=== PATIENT | female | born 1995 | race Caucasian/White ===

== ENCOUNTER 2017-07-08 14:47 | Day surgery (SDC) | payer BC, OTHER ==
[~2017-07-08] VITALS: Ht 162.6 cm; Wt 75.9 kg
[~2017-07-08 14:47] MED LIST: ACETAMINOPHEN 500 MG TAB (TYLENOL) PO PRN; ALPRAZolam 0.25 MG (XANAX) TAB PO PRN; IBUPROFEN TABLET 200 MG TAB PO PRN; NS IV 1000 ML 1,000 ML IV SCH
[2017-07-08 14:55] VITALS: BP 120/79
[2017-07-08] MEDS ORDERED: CETI10TA20 PO (15:20)
[2017-07-08] MEDS ORDERED: NORE1TAB95 PO (15:20)
[2017-07-08] MEDS ORDERED: NS IV 1000 ML 1,000 ML ONE (15:41)
[2017-07-08] MEDS ORDERED: CATHETER FLUSH 10 ML SYR IV PRN (15:45)
[2017-07-08 17:09] LABS: BASOPHILS % (AUTO) 0 % (0-10); EOSINOPHILS % (AUTO) 0 % (0-10); LYMPHOCYTES # (AUTO) 0.5 X 10^3 (1.0-4.0); LYMPHOCYTES % (AUTO) 10 % (12-44); MEAN CORPUSCULAR HEMOGLOBIN 29 PG (25-34); MEAN CORPUSCULAR HGB CONC 35 G/DL (32-36); MEAN CORPUSCULAR VOLUME 85 FL (80-99); MEAN PLATELET VOLUME 10.5 FL (7.4-10.4); MONOCYTES # (AUTO) 0.2 X 10^3 (0.0-1.0); MONOCYTES % (AUTO) 5 % (0-12); NEUTROPHILS # (AUTO) 3.8 X 10^3 (1.8-7.8); NEUTROPHILS % (AUTO) 85 % (42-75); PLATELET COUNT 168 10^3/uL (130-400); RED CELL DISTRIBUTION WIDTH 12.6 % (10.0-14.5); WHITE BLOOD COUNT 4.5 10^3/uL (4.3-11.0)
[2017-07-08] MEDS ORDERED: PANTOPRAZOLE 40 MG/10 ML (PROTONIX) VIAL IV NR (17:15)
[2017-07-08] MEDS: ONDANSETRON 4 MG/2 ML (SDV) Z0FRAN IVP PRN ×2 (17:38→21:39)
[2017-07-08 17:39] LABS: ALANINE AMINOTRANSFERASE 15 U/L (0-55); ALBUMIN 3.5 GM/DL (3.2-4.5); ANION GAP 8 MMOL/L (5-14); ASPARTATE AMINO TRANSFERASE 16 U/L (5-34); BILIRUBIN,TOTAL 0.5 MG/DL (0.1-1.0); BLOOD UREA NITROGEN 9 MG/DL (7-18); BUN/CREATININE RATIO 13; CALCIUM 7.7 MG/DL (8.5-10.1); CARBON DIOXIDE 22 MMOL/L (21-32); CHLORIDE 108 MMOL/L (98-107); GFR ESTIMATED > 60; GLUCOSE 89 MG/DL (70-105); POTASSIUM 3.1 MMOL/L (3.6-5.0); SODIUM 138 MMOL/L (135-145); TOTAL PROTEIN 5.6 GM/DL (6.4-8.2)
[2017-07-08] MEDS ORDERED: POTASSIUM CHLORIDE INJ 20 MEQ in NS IV 1000 ML 1,000 ML IV SCH (17:43)
--- NOTE | 2017-07-08 17:52 | History & Physical-Hospitalist ---
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 She had taken some TUMS periodically for the past 1 month after self-dx GERD but denies any pain like this before. I have consulted Dr Lua and he has seen the patient and we conferred about his plan for repeat USG and EGD tomorrow and placed her on PPI in meantime. I have also consulted Dr Regalado for severe tachycardia of 160's in ER and given 2 liters of fluid bolus and then 200cc/he and still remained tachycardic at 120's. ECHO was completed and that was nl. Currently patient still feels bloated but her pain is better. I have met her family and explained the plans. 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[place]) Alcohol Use: Occasionally Uses Number of Drinks Today: 0 Recreational Drug Use: No Smoking Status: Never a Smoker Physical Abuse Screen: No Sexual Abuse: No Recent Foreign Travel: No Contact w/other who traveled: No Recent Hopitalizations: No Recent Infectious Disease Expo: No Immunizations Up To Date Date of Influenza Vaccine: May 04, 2017 Seasonal Allergies Seasonal Allergies: Yes Surgeries Yes (tooth extraction) Respiratory No Cardiovascular No Neurological No Genitourinary Yes Kidney Stones Gastrointestinal No Musculoskeletal No Endocrine History of Endocrine Disorders: No HEENT History of HEENT Disorders: No Cancer No Psychosocial History of Psychiatric Problem: No Integumentary History of Skin or Integumenta: No Blood Transfusions History of Blood Disorders: No Family Medical History Family Hx: FH: breast cancer 19 MOTHER FH: mastectomy 19 MOTHER (with lymph node removal) Review of Systems Constitutional: see HPI, malaise, weakness EENTM: no symptoms reported Respiratory: no symptoms reported Cardiovascular: palpitations Gastrointestinal: abdominal pain (RUQ), dysphagia, heartburn, loss of appetite , nausea, vomiting Genitourinary: no symptoms reported Musculoskeletal: no symptoms reported Skin: no symptoms reported Psychiatric/Neurological: No Symptoms Reported All Other Systems Reviewed Negative Unless Noted: Yes Physical Exam Physical Exam Vital Signs Vital Sign - Last 12Hours 07/08/17 14:55 Temp 99.2 Pulse 124 Resp 16 B/P (MAP) 120/79 (93) Pulse Ox 99 O2 Delivery Room Air Capillary Refill : General Appearance: WD/WN, Mild Distress (due to fright of ICU) Eyes: Bilateral Eye Normal Inspection, Bilateral Eye PERRL HEENT: PERRL/EOMI, Normal ENT Inspection, Pharynx Normal Neck: Full Range of Motion, Normal Inspection, Non Tender, Supple, Carotid Bruit Respiratory: Chest Non Tender, Lungs Clear, Normal Breath Sounds, No Accessory Muscle Use, No Respiratory Distress Cardiovascular: No Edema, No Gallop, No JVD, No Murmur, Normal Peripheral Pulses, Tachycardia Gastrointestinal: Normal Bowel Sounds, No Organomegaly, No Pulsatile Mass, Guarding, Tenderness Back: Normal Inspection, No CVA Tenderness, No Vertebral Tenderness Extremity: Normal Capillary Refill, Normal Inspection, Normal Range of Motion, Non Tender, No Calf Tenderness, No Pedal Edema Neurologic/Psychiatric: Alert, Oriented x3, No Motor/Sensory Deficits, Normal Mood/Affect Skin: Normal Color, Warm/Dry Lymphatic: No Adenopathy Results Results/Procedures Lab Laboratory Tests 07/08/17 16:55 Assessment/Plan Admission Diagnosis Assessment: Severe epigastric abdominal pain with negative CT scan and GB USG but severely tachycardic and bandemia of 30% in outlying ER Recent GERD Assessment and Plan Plan: IVF Potassium replacement Pain meds PPI EGD GB USG Amylase, lipas Clinical Quality Measures DVT/VTE Risk/Contraindication: Risk Factor Score Per Nursin RFS Level Per Nursing on Admit: 1=Low/No VTE PPX SHANEKA HAINES DO Jul 08, 2017 17:52
[2017-07-08 18:20] LABS: AMYLASE 47 U/L (25-125); LIPASE 15 U/L (8-78)
[2017-07-08] MEDS: NS W/KCL 20 MEQ/L 1,000 ML IV SCH (18:28)
--- NOTE | 2017-07-08 18:42 | Diagnostic Imaging Report ---
PROCEDURE: US Gallbladder. TECHNIQUE: Multiple real-time grayscale images were obtained over the right upper quadrant in various projections. INDICATION: Right upper quadrant pain with vomiting. EXAMINATION: Ultrasound gallbladder dated 07/08/2017. FINDINGS: The visualized aspects of the liver appear unremarkable. No masses or lesions appreciated. There is no intrahepatic biliary dilatation. The common bile duct is not well seen, perhaps obscured by overlying bowel gas. Gallbladder wall is normal. No stones seen in the gallbladder. No sludge appreciated. Pancreas is also not well visualized. Right kidney is 11.1 cm in greatest dimension. It is unremarkable. There is no ascites. IMPRESSION: 1. Visualized structures demonstrate no acute abnormality. However, some areas are not well seen as noted above. Dictated by: Dictated on workstation # [id number]
[2017-07-08 20:00] VITALS: BP 116/71
[2017-07-08] MEDS: fentaNYL INJECTION 100 MCG/2 ML AMP IVP PRN (21:39)
--- NOTE | 2017-07-08 21:57 | Consultation ---
History of Present Illness History of Present Illness Patient Consulted On(kwadwo/time) 07/08/17 16:58 Date Seen by Provider: Jul 08, 2017 Time Seen by Provider: 16:58 History of Present Illness Consult requested by Dr. Haines for epigastric abdominal pain. patient is a 22 year old female that was transferred from [facility]. Patient began having pain in the epigastric region yesterday and pain has continued through today. Patient has been having nausea and emesis. Pain she states at worse was 8/10 currently a 3/10. Pain moves slightly towards the right side under her ribs and also has some associated back pain. Patient states that she has having some gerd symptoms for about the last month, taking TUMS but never has experienced pain like this before. She has been tachycardic. She had a GB u/s which was normal at outlying facility and a ct scan that demonstrated slight gastric thickening possible underdistended stomach no other significant findings. Patient reports slight fever up to 101. She denies sweats chills shortness of breath or chest pain. Allergies and Home Medications Allergies Coded Allergies: No Allergy Information Available (Unverified , 07/08/17) Home Medications Cetirizine HCl 10 Mg Tablet, 10 MG PO DAILY, (Reported) Norethindrone-E.estradiol-Iron 1 Each Tablet, 1 TAB PO DAILY, (Reported) Past Xtwqoad-Srvokq-Ktxuuh Hx Patient Social History Alcohol Use: Occasionally Uses Number of Drinks Today: 0 Recreational Drug Use: No Smoking Status: Never a Smoker Recent Foreign Travel: No Contact w/Someone Who Travel: No Recent Infectious Disease Expo: No Recent Hopitalizations: No Physical Abuse Screen: No Sexual Abuse: No Immunizations Up To Date Date of Influenza Vaccine: May 04, 2017 Seasonal Allergies Seasonal Allergies: Yes Surgeries History of Surgeries: Yes (tooth extraction) Respiratory History of Respiratory Disorde: No Cardiovascular History of Cardiac Disorders: No Neurological History of Neurological Disord: No Genitourinary History of Genitourinary Disor: Yes Genitourinary Disorders: Kidney Stones Gastrointestinal History of Gastrointestinal Di: No Musculoskeletal History of Musculoskeletal Dis: No Endocrine History of Endocrine Disorders: No HEENT History of HEENT Disorders: No Cancer History of Cancer: No Psychosocial History of Psychiatric Problem: No Integumentary History of Skin or Integumenta: No Blood Transfusions History of Blood Disorders: No Family Medical History Significant Family History: No Pertinent Family Hx Family Medial History: FH: breast cancer 19 MOTHER FH: mastectomy 19 MOTHER (with lymph node removal) Review of Systems-General Constitutional: see HPI, fever EENTM: no symptoms reported Respiratory: no symptoms reported Cardiovascular: see HPI Gastrointestinal: RUQ Genitourinary: no symptoms reported Musculoskeletal: back pain Skin: no symptoms reported Psychiatric/Neurological: No Symptoms Reported Physical Exam-General Problems Physical Exam Vital Signs Vital Sign - Last 12Hours 07/08/17 14:55 Temp 99.2 Pulse 124 Resp 16 B/P (MAP) 120/79 (93) Pulse Ox 99 O2 Delivery Room Air Capillary Refill : General Appearance: no apparent distress HEENT: normal ENT inspection Neck: supple Respiratory: no respiratory distress, no accessory muscle use Cardiovascular: tachycardia Gastrointestinal: soft, tenderness (slight in epigastric rightu upper quadrant) Back: normal inspection, no CVA tenderness, no vertebral tenderness Extremities: non-tender, normal inspection Neurologic/Psychiatric: no motor/sensory deficits, alert, normal mood/affect, oriented x 3 Skin: normal color, warm/dry Lymphatic: no adenopathy Data Review Labs Laboratory Tests 07/08/17 16:55: White Blood Count 4.5, Red Blood Count 4.70, Hemoglobin 13.8, Hematocrit 40, Mean Corpuscular Volume 85, Mean Corpuscular Hemoglobin 29, Mean Corpuscular Hemoglobin Concent 35, Red Cell Distribution Width 12.6, Platelet Count 168, Mean Platelet Volume 10.5H, Neutrophils (%) (Auto) 85H, Lymphocytes (%) (Auto) 10L, Monocytes (%) (Auto) 5, Eosinophils (%) (Auto) 0, Basophils (%) (Auto) 0, Neutrophils # (Auto) 3.8, Lymphocytes # (Auto) 0.5L, Monocytes # (Auto) 0.2, Eosinophils # (Auto) 0.0, Basophils # (Auto) 0.0, Sodium Level 138, Potassium Level 3.1L, Chloride Level 108H, Carbon Dioxide Level 22, Anion Gap 8, Blood Urea Nitrogen 9, Creatinine 0.70, Estimat Glomerular Filtration Rate > 60, BUN/ Creatinine Ratio 13, Glucose Level 89, Calcium Level 7.7L, Total Bilirubin 0.5, Aspartate Amino Transf (AST/SGOT) 16, Alanine Aminotransferase (ALT/SGPT) 15, Alkaline Phosphatase 47, Total Protein 5.6L, Albumin 3.5, Amylase Level 47, Lipase 15 Assessment/Plan Assessment/Plan Assessment/Plan epigastric/right upper quadrant abdominal pain. nausea and vomiting GERD will repeat u/s of gallbladder tonight to evaluate. her liver enzymes were not elevated, labs being repeated here if gb u/s normal will plan on EGD tomorrow, NPO after midnight. Patient does have symptoms of reflux which could be attributing to current symptoms, started on Protonix All of patient and family questions answered Clinical Quality Measures DVT/VTE Risk/Contraindication: Risk Factor Score Per Nursin RFS Level Per Nursing on Admit: 1=Low/No VTE PPX JONY SAAVEDRA DO Jul 08, 2017 21:57
[2017-07-09] VITALS: BP 112/58
[2017-07-09] MEDS: NS W/KCL 20 MEQ/L 1,000 ML IV SCH ×5 (00:25→20:56)
[2017-07-09 04:00] VITALS: BP 108/64
[2017-07-09] MEDS: ONDANSETRON 4 MG/2 ML (SDV) Z0FRAN IVP PRN ×5 (04:32→23:49)
[2017-07-09] MEDS: fentaNYL INJECTION 100 MCG/2 ML AMP IVP PRN ×4 (04:32→23:52)
[2017-07-09 05:00] LABS: BASOPHILS % (AUTO) 0 % (0-10); EOSINOPHILS % (AUTO) 1 % (0-10); LYMPHOCYTES # (AUTO) 0.8 X 10^3 (1.0-4.0); LYMPHOCYTES % (AUTO) 22 % (12-44); MEAN CORPUSCULAR HEMOGLOBIN 30 PG (25-34); MEAN CORPUSCULAR HGB CONC 35 G/DL (32-36); MEAN CORPUSCULAR VOLUME 85 FL (80-99); MEAN PLATELET VOLUME 10.4 FL (7.4-10.4); MONOCYTES # (AUTO) 0.3 X 10^3 (0.0-1.0); MONOCYTES % (AUTO) 9 % (0-12); NEUTROPHILS # (AUTO) 2.4 X 10^3 (1.8-7.8); NEUTROPHILS % (AUTO) 68 % (42-75); PLATELET COUNT 145 10^3/uL (130-400); RED CELL DISTRIBUTION WIDTH 12.4 % (10.0-14.5); WHITE BLOOD COUNT 3.5 10^3/uL (4.3-11.0)
[2017-07-09 05:40] LABS: ALANINE AMINOTRANSFERASE 18 U/L (0-55); ALBUMIN 3.2 GM/DL (3.2-4.5); ANION GAP 11 MMOL/L (5-14); ASPARTATE AMINO TRANSFERASE 20 U/L (5-34); BILIRUBIN,TOTAL 0.5 MG/DL (0.1-1.0); BLOOD UREA NITROGEN 5 MG/DL (7-18); BUN/CREATININE RATIO 9; CALCIUM 7.3 MG/DL (8.5-10.1); CARBON DIOXIDE 17 MMOL/L (21-32); CHLORIDE 109 MMOL/L (98-107); CREATININE SERUM 0.57 MG/DL (0.60-1.30); GFR ESTIMATED > 60; GLUCOSE 80 MG/DL (70-105); POTASSIUM 3.8 MMOL/L (3.6-5.0); SODIUM 137 MMOL/L (135-145); TOTAL PROTEIN 4.3 GM/DL (6.4-8.2)
[2017-07-09 08:00] VITALS: BP 103/57
[2017-07-09] MEDS: LORATADINE (CLARITIN) 10 MG TAB PO SCH (08:29)
[2017-07-09] MEDS: PANTOPRAZOLE 40 MG/10 ML (PROTONIX) VIAL IV SCH (08:29)
[2017-07-09] MEDS: HYDROcodone/APAP 5 MG/325 MG (LORTAB) TAB PO PRN (08:29)
[2017-07-09] MEDS ORDERED: NORETHINDRONE E ESTRADIOL IRON PO SCH (09:00)
[2017-07-09] MEDS ORDERED: NON-FORMULARY MEDICATION 1 EA EA (Cetirizine HCl (Zyrtec) 10 MG) PO SCH (09:00)
--- NOTE | 2017-07-09 09:16 | Progress Note ---
Subjective Date Seen by Provider: Jul 09, 2017 Time Seen by Provider: 09:12 Subjective/Events-last exam Not having any significant abdominal pain. Still with some nausea. Denies fever sweats chills shortness of breath or chest pain. U/s gb normal Objective Exam Vital Signs Date Time Temp Pulse Resp B/P (MAP) Pulse Ox O2 Delivery O2 Flow Rate FiO2 07/09/17 08:00 96.9 92 12 103/57 (72) 98 Room Air 07/09/17 07:00 78 07/09/17 04:00 98.2 93 16 108/64 (79) 97 Room Air 07/09/17 04:00 97 Room Air 07/09/17 01:00 87 07/09/17 00:00 97 Room Air 07/09/17 00:00 98.6 98 18 112/58 (76) 97 Room Air 07/08/17 21:00 97 Room Air 07/08/17 20:00 98.0 105 16 116/71 (86) 97 Room Air 07/08/17 20:00 97 Room Air 07/08/17 19:00 114 07/08/17 15:00 Room Air 07/08/17 14:55 99.2 124 16 120/79 (93) 99 Room Air I & O 07/09/17 07:00 Intake Total 440 ml Output Total 1100 ml Balance -660 ml Capillary Refill : General Appearance: No Apparent Distress, WD/WN HEENT: PERRL/EOMI, Normal ENT Inspection, Pharynx Normal Neck: Full Range of Motion, Normal Inspection, Non Tender, Supple, Carotid Bruit Respiratory: Chest Non Tender, Lungs Clear, Normal Breath Sounds, No Accessory Muscle Use, No Respiratory Distress Cardiovascular: Regular Rate, Rhythm, Tachycardia Gastrointestinal: non tender (no significant tenderness), soft, tenderness Extremity: Normal Capillary Refill, Normal Inspection, Normal Range of Motion, Non Tender, No Calf Tenderness, No Pedal Edema Neurologic/Psychiatric: Alert, Oriented x3, No Motor/Sensory Deficits, Normal Mood/Affect Skin: Normal Color, Warm/Dry Lymphatic: No Adenopathy Results Lab Laboratory Tests 07/08/17 16:55: White Blood Count 4.5, Red Blood Count 4.70, Hemoglobin 13.8, Hematocrit 40, Mean Corpuscular Volume 85, Mean Corpuscular Hemoglobin 29, Mean Corpuscular Hemoglobin Concent 35, Red Cell Distribution Width 12.6, Platelet Count 168, Mean Platelet Volume 10.5H, Neutrophils (%) (Auto) 85H, Lymphocytes (%) (Auto) 10L, Monocytes (%) (Auto) 5, Eosinophils (%) (Auto) 0, Basophils (%) (Auto) 0, Neutrophils # (Auto) 3.8, Lymphocytes # (Auto) 0.5L, Monocytes # (Auto) 0.2, Eosinophils # (Auto) 0.0, Basophils # (Auto) 0.0, Sodium Level 138, Potassium Level 3.1L, Chloride Level 108H, Carbon Dioxide Level 22, Anion Gap 8, Blood Urea Nitrogen 9, Creatinine 0.70, Estimat Glomerular Filtration Rate > 60, BUN/ Creatinine Ratio 13, Glucose Level 89, Calcium Level 7.7L, Total Bilirubin 0.5, Aspartate Amino Transf (AST/SGOT) 16, Alanine Aminotransferase (ALT/SGPT) 15, Alkaline Phosphatase 47, Total Protein 5.6L, Albumin 3.5, Amylase Level 47, Lipase 15 07/09/17 04:40: White Blood Count 3.5L, Red Blood Count 4.20L, Hemoglobin 12.5, Hematocrit 36, Mean Corpuscular Volume 85, Mean Corpuscular Hemoglobin 30, Mean Corpuscular Hemoglobin Concent 35, Red Cell Distribution Width 12.4, Platelet Count 145, Mean Platelet Volume 10.4, Neutrophils (%) (Auto) 68, Lymphocytes (%) (Auto) 22 , Monocytes (%) (Auto) 9, Eosinophils (%) (Auto) 1, Basophils (%) (Auto) 0, Neutrophils # (Auto) 2.4, Lymphocytes # (Auto) 0.8L, Monocytes # (Auto) 0.3, Eosinophils # (Auto) 0.0, Basophils # (Auto) 0.0, Sodium Level 137, Potassium Level 3.8, Chloride Level 109H, Carbon Dioxide Level 17L, Anion Gap 11, Blood Urea Nitrogen 5L, Creatinine 0.57L, Estimat Glomerular Filtration Rate > 60, BUN /Creatinine Ratio 9, Glucose Level 80, Calcium Level 7.3L, Total Bilirubin 0.5, Aspartate Amino Transf (AST/SGOT) 20, Alanine Aminotransferase (ALT/SGPT) 18, Alkaline Phosphatase 44, Total Protein 4.3L, Albumin 3.2 Assessment/Plan Assessment/Plan Assessment/Plan epigastric/right upper quadrant abdominal pain. nausea and vomiting GERD gb u/s normal will plan EGD today. Clinical Quality Measures DVT/VTE Risk/Contraindication: Risk Factor Score Per Nursin RFS Level Per Nursing on Admit: 1=Low/No VTE PPX JONY SAAVEDRA DO Jul 09, 2017 09:16
--- NOTE | 2017-07-09 09:26 | Consultation-Cardiology ---
HPI-Cardiology Cardiology Consultation: Date of Consultation 07/09/17 Date of Admission Attending Physician Shaneka Haines DO Admitting Physician Zeina,Local Physician Consulting Physician Emmanuel REGALADO MD HPI: Time Seen by Provider: 09:25 Chief Complaint: Tachycardia This is a 22-year-old lady with no significant past medical history. She presents with right abdominal pain for the last 2 days. She is also had associated nausea. She was found to be tachycardic and had leukocytosis. She denies any chest pain or shortness of breath. She denies smoking or alcohol history. She also denies drug abuse. Review of Systems-Cardiology Review of Systems Constitutional: fever Eyes: No As described under HPI, No no symptoms reported, No blindness, No blurred vision, No contact lenses, No drainage, No decreased acuity, No foreign body sensation, No glasses, No inflammation, No pain, No photophobia, No previous injury, No shadows, No tunnel vision, No other, No vision change Ears/Nose/Throat: No As described under HPI, No no symptoms reported, No chronic hearing loss, No epistaxis, No ear discharge, No ear pain, No loose teeth, No mouth pain, No mouth swelling, No nasal drainage, No nose pain, No recent hearing loss, No throat pain, No throat swelling, No ulcerations, No other Respiratory: No no symptoms reported, No As described under HPI, No cough, No orthopnea, No shortness of breath, No SOB with excertion, No SOB at rest, No stridor, No wheezing, No other Cardiovascular: No no symptoms reported, No As described under HPI, No chest pain, No edema, No irregular heart rate, No lightheadedness, No palpitations, No syncope, No other Gastrointestinal: abdominal pain Genitourinary: No no symptoms reported, No As described under HPI, No burning, No dysuria, No discharge, No frequency, No flank pain, No hematuria, No incontinence, No pain, No urgency, No other, No urine frequency changes, No urine coloration changes Musculoskeletal: No no symptoms reported, No As describe under HPI, No back pain, No gout, No joint pain, No joint swelling, No muscle pain, No muscle stiffness, No neck pain, No other Skin: No no symptoms reported, No As described under HPI, No change in color, No change in hair/nails, No dryness, No lesions, No lumps, No rash, No other, No skin related problems, No ulcerations, No rash on exposed areas, No ulcerations on exposed areas Psychiatric/Neurological: No no symptoms reported, No As described under HPI, No anxiety, No depression, No emotional problems, No headache, No numbness, No pre-existing deficit, No seizure, No tingling, No tremors, No weakness, No other , No focal weakness, No syncope Hematologic: No no symptoms reported, No As described under HPI, No anemia, No blood clots, No easy bleeding, No easy bruising, No swollen glands, No other, No bleeding abnormalities All Other Systems Reviewed Negative Unless Noted: Yes NWT-Mffeaf-Lardrg Hx Patient Social History Marrital Status: single Employed/Student: employed ([employer] in [place]) Alcohol Use: Occasionally Uses Recreational Drug Use: No Smoking Status: Never a Smoker Recent Foreign Travel: No Recent Infectious Disease Expo: No Hospitalization with Isolation: Denies Physical Abuse Screen: No Sexual Abuse: No Immunizations Up To Date Date of Influenza Vaccine: May 04, 2017 Past Medical History PMH As described under Assessment. Family Medical History Family History: FH: breast cancer 19 MOTHER FH: mastectomy 19 MOTHER (with lymph node removal) Allergies and Home Medications Allergies Coded Allergies: No Allergy Information Available (Unverified , 07/08/17) Home Medications Cetirizine HCl 10 Mg Tablet, 10 MG PO DAILY, (Reported) Norethindrone-E.estradiol-Iron 1 Each Tablet, 1 TAB PO DAILY, (Reported) Physical Exam-Cardiology Physical Exam Vital Signs/I&O Vital Sign - Last 12Hours 07/10/17 07/10/17 07/10/17 07/10/17 00:00 00:00 01:00 04:00 Pulse 78 73 Resp 19 B/P (MAP) 119/73 (88) Pulse Ox 98 O2 Delivery Room Air Room Air Room Air 07/10/17 07/10/17 07/10/17 07/10/17 04:00 07:00 08:00 08:00 Temp 98.5 Pulse 76 64 78 Resp 20 B/P (MAP) 116/78 (91) 126/81 (96) Pulse Ox 97 O2 Delivery Room Air Room Air 07/10/17 07/10/17 09:00 11:04 O2 Delivery Room Air Room Air Intake and Output 07/09/17 23:59 Intake Total 2550 ml Output Total 2350 ml Balance 200 ml Capillary Refill : Constitutional: No appears stated age, No AAO x 3, No apparent distress, No PERRL, No well-developed, No well-nourished, No other HEENT: No PERRL, No normal ENT inspection, No TMs normal, No pharynx normal, No scleral icterus (R), No scleral icterus (L), No pale conjunctivae (R), No pale conjunctivae (L), No photophobia, No TM abnormal (R), No TM abnormal (L), No pharyngeal erythema, No tonsillar exudate, No other, No discharge, No EOMI, No hearing is well preserved, No hard of hearing, No oral hygience is good, No ulceration, No xanthelasmas are seen Neck: No non-tender, No full range of motion, No supple, No normal inspection, No carotid bruit, No limited range of motion, No lymphadenopathy (R), No lymphadenopathy (L), No tender lateral, No tender midline, No thyromegaly, No other, No carotid pulses are 2 + bilaterally, No with good upstrokes Respiratory: No accessory muscle use, No respiratory distress, No chest tender , No chest expansion is symmetric, No chest is bilaterally symmetric, No lungs clear to percussion, No lungs clear to auscultation, No crackles, No rhonchi, No rales, No stridor, No wheezing, No pleural rub, No other Cardiovascular: regular rate-rhythm, tachycardia, S1 and S2 Gastrointestinal: tenderness Rectal: deferred Extremities: No normal range of motion, No non-tender, No normal inspection, No pedal edema, No calf tenderness, No normal capillary refill, No pelvis stable , No calf tenderness, No inflammation, No pedal edema, No slow capillary refill , No swelling, No other, No abrasion, No clubbing, No cyanosis, No ecchymosis, No laceration, No no lower extremity edema bilateral, No significant edema, No tenderness, No wound Neurologic/Psychiatric: No cost estimating engineer II-XII nml as tested, No no motor/sensory deficits, No alert, No normal mood/affect, No oriented x 3, No abnormal cerebellar tests, No abnormal cost estimating engineer II-XII, No abnormal gait, No aphasia, No EOM palsy, No facial droop, No motor weakness, No sensory deficit, No depressed affect, No disoriented x 3, No other, No grossly intact, No power is 5/5 both on sides Skin: No normal color, No warm/dry, No cyanosis, No cool, No diaphoresis, No damp, No ecchymosis, No jaundice, No mottled, No pallor, No rash, No tattoos/ piercings, No ulcerations, No rash on exposed areas, No ulcerations on exposed areas, No other Lymphatic: no adenopathy Data Review Labs ECG Impression ECG Initial ECG Rhythm: S.Tach A/P-Cardiology Assessment/Admission Diagnosis Tachycardia, abdominal pain, leucocytosis Plan Sinus tachycardia with normal echocardiogram. very likely secondary to systemic illness. Discussed at length with the patient. No stigmata of infective endocarditis. Defer to primary team. Thank you for your consultation. Please call me if you have any questions. Maximus Regalado MD, FACP, FACC, FSCAI, FHRS, CCDS Interventional Cardiology Cardiac Electrophysiology Vascular Medicine and Endovascular Interventions Clinical Quality Measures DVT/VTE Risk/Contraindication: Risk Factor Score Per Nursin RFS Level Per Nursing on Admit: 1=Low/No VTE PPX Emmanuel REGALADO MD Jul 09, 2017 09:26
--- NOTE | 2017-07-09 11:01 | Progress Note-Hospitalist ---
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 She had taken some TUMS periodically for the past 1 month after self-dx GERD but denies any pain like this before. I have consulted Dr Lua and he has seen the patient and we conferred about his plan for repeat USG and EGD tomorrow and placed her on PPI in meantime. I have also consulted Dr Regalado for severe tachycardia of 160's in ER and given 2 liters of fluid bolus and then 200cc/he and still remained tachycardic at 120's. ECHO was completed and that was nl. Currently patient still feels bloated but her pain is better. I have met her family and explained the plans. Progress Notes/Assess & Plan Date Seen 07/09/17 Time Seen by Provider: 11:00 Admission Dx/Process Assessment: Severe epigastric abdominal pain with negative CT scan and GB USG but severely tachycardic and bandemia of 30% in outlying ER Recent GERD Diagonsis/Assessment & Plan Dr. Regalado Review: Pt was in sinus tach and Dr. Regalado believes that her symptoms appear to just be a response to illness Echo was normal Patient Interview: Pt states she is sore and has a headache Pt confirms scope this afternoon and was assured that this is necessary to complete workup and hopefully rule out gastritis. US of gallbladder discussed and looks good Pt states her abdominal pain is fine, but she has been on pain meds Labs were discussed and look good, better than yesterday Physical exam stable. Pt confirms flatus, but denies having BMs. Pt denies eating for at least a day. Stress response was discussed, and it was discussed that sometimes a very healthy individual can mount a very strong immune response, much like the one the pt experienced. AFVSS, pleasant, improved RRR at 72, CTAB soft abdomen No edema Assessment: Severe epigastric abdominal pain with negative CT scan and GB USG but severely tachycardic and bandemia of 30% in outlying ER Recent GERD Plan: IVF Pain meds PPI EGD Scribed by Mimi Swanson under direct supervision of Dr. Shaneka Hansen. SHANEKA HANSEN DO Jul 09, 2017 11:01
[2017-07-09 12:39] VITALS: BP 116/74
[2017-07-09] MEDS ORDERED: proPOfol 200 MG/20 ML (DIPRIVAN) VIAL IV ONE ×2 (14:21→14:47)
[2017-07-09] MEDS ORDERED: MIDAZOLAM 5 MG/5 ML (VERSED) VIAL ONE (14:21)
[2017-07-09] MEDS ORDERED: LACTATED RINGERS 1,000 ML IV ONE (14:31)
[2017-07-09] MEDS ORDERED: LACTATED RINGERS 1,000 ML IV STA (15:01)
[2017-07-09] MEDS ORDERED: HURRICAINE EXT TUBE (BENZOCAINE) XX PRN (15:15)
--- NOTE | 2017-07-09 16:00 | Progress Note-Post Operative ---
Post-Operative Progess Note Surgeon (s)/Timber Robber (s) Surgeon JONY SAAVEDRA DO Timber Robber: na Pre-Operative Diagnosis epigastric abdominal pain , gerd Post-Operative Diagnosis slight gastritis, hiatal hernia Procedure & Operative Findings Date of Procedure 07/09/17 Procedure Performed/Findings egd c biopsy Anesthesia Type per hosiery mender Estimated Blood Loss Estimated blood loss (mL): none Specimens/Packing Specimens Removed antrum JONY SAAVEDRA DO Jul 09, 2017 16:00
[2017-07-09 20:00] VITALS: BP 114/66
--- NOTE | 2017-07-09 22:26 | OPERATIVE REPORT ---
DATE OF SERVICE: 07/09/2017 PREOPERATIVE DIAGNOSES: Epigastric abdominal pain and gastroesophageal reflux disease. POSTOPERATIVE DIAGNOSES: Slight gastritis, hiatal hernia. PROCEDURE PERFORMED: Esophagogastroduodenoscopy with biopsy. SURGEON: Jony Lua DO. ANESTHESIA: Per WATCH INSPECTOR FINAL MOVEMENT. ESTIMATED BLOOD LOSS: None. COMPLICATIONS: None. INDICATIONS: The patient is a 22-year-old female, who has been having epigastric abdominal pain, nausea and vomiting. She has had a normal CT scan except for some questionable thickening of the stomach. She has had normal ultrasound of her gallbladder. She understands risks and benefits of procedure and wished to proceed with procedure. Consent was signed and on the chart. DESCRIPTION OF PROCEDURE: The patient was taken to the endoscopy suite, placed in left lateral recumbent position. Timeout was performed. Scope was inserted in mouth, down into esophagus, stomach and into the duodenum without difficulty. There were no polyps, mass or ulcerations within the duodenum. Scope was slowly retracted back into the stomach, which was further insufflated. Some slight erythematous changes within the antrum. Biopsy of this area was obtained. The scope was retroflexed noting a hiatal hernia. There were no polyps, masses or ulcerations. Scope was returned to its normal position, slowly withdrawn back into the distal esophagus. There were no polyps, masses, ulcerations, or erythematous changes in the distal esophagus. Scope was slowly retracted back until completely removed, noting no other pathology. The patient tolerated procedure well without any complications. She was taken to recovery room in stable condition. RECOMMENDATIONS: We would continue the patient on Protonix. We would recommend doing a HIDA scan for further evaluation. Job ID: [id number] DocumentID: [id number] Dictated Date: 07/09/2017 16:06:25 Tomato Grader Date: 07/09/2017 22:25:51 Dictated By: JONY LUA DO
[2017-07-10] VITALS: BP 119/73
[2017-07-10] MEDS: HYDROcodone/APAP 5 MG/325 MG (LORTAB) TAB PO PRN (00:13)
[2017-07-10] MEDS: NS W/KCL 20 MEQ/L 1,000 ML IV SCH ×2 (03:43→12:30)
[2017-07-10 04:00] VITALS: BP 116/78
[2017-07-10 08:00] VITALS: BP 126/81
[2017-07-10] MEDS: LORATADINE (CLARITIN) 10 MG TAB PO SCH (08:36)
[2017-07-10] MEDS: PANTOPRAZOLE 40 MG/10 ML (PROTONIX) VIAL IV SCH (08:37)
--- NOTE | 2017-07-10 10:07 | Cardiology Progress Note ---
Cardiology SOAP Progress Note Subjective: No cardiac complaints. Objective: I&O/Vital Signs Vital Sign - Last 12Hours 07/10/17 07/10/17 07/10/17 07/10/17 01:00 04:00 04:00 07:00 Temp 98.5 Pulse 73 76 64 Resp 20 B/P (MAP) 116/78 (91) Pulse Ox 97 O2 Delivery Room Air Room Air 07/10/17 07/10/17 07/10/17 07/10/17 08:00 08:00 09:00 11:04 Pulse 78 B/P (MAP) 126/81 (96) O2 Delivery Room Air Room Air Room Air Intake and Output 07/09/17 23:59 Intake Total 2550 ml Output Total 2350 ml Balance 200 ml Weight (Pounds): 167 Weight (Ounces): 7.0 Weight (Calculated Kilograms): 75.154077 Constitutional: No appears stated age, No AAO x 3, No apparent distress, No PERRL, No well-developed, No well-nourished, No other Respiratory: No accessory muscle use, No respiratory distress, No chest tender , No chest expansion is symmetric, No chest is bilaterally symmetric, No lungs clear to percussion, No lungs clear to auscultation, No crackles, No rhonchi, No rales, No stridor, No wheezing, No pleural rub, No other Cardiovascular: No regular rate-rhythm, No irregularly irregular, No extra beats, No parasternal heave is noted, No JVD, No edema, No bradycardia, No tachycardia, No point of maximal impulse, No cardiac thrills are palpable, No S1 and S2, No gallop/S3, No gallop/S4, No diastolic murmur, No systolic murmur, No friction rub, No click, No other Gastrointestional: No tender, No soft, No round, No distended, No pulsatile mass, No organomegaly, No guarding, No rebound, No tenderness, No hernia, No mass, No audible bowel sounds, No abnormal bowel sounds, No abdominal bruits, No spleenomegaly, No other Genital/Rectal: No normal genital exam, No normal rectal exam, No heme negative stool, No normal rectal tone, No normal vaginal exam, No blood at urethral meatus, No decreased rectal tone, No heme positive stool, No tenderness , No other Extremities: No normal range of motion, No non-tender, No normal inspection, No pedal edema, No calf tenderness, No normal capillary refill, No pelvis stable , No calf tenderness, No inflammation, No pedal edema, No slow capillary refill , No swelling, No other, No abrasion, No clubbing, No cyanosis, No ecchymosis, No laceration, No no lower extremity edema bilateral, No significant edema, No tenderness, No wound Neurologic/Psychiatric: No compensation manager II-XII nml as tested, No no motor/sensory deficits, No alert, No normal mood/affect, No oriented x 3, No abnormal cerebellar tests, No abnormal compensation manager II-XII, No abnormal gait, No aphasia, No EOM palsy, No facial droop, No motor weakness, No sensory deficit, No depressed affect, No disoriented x 3, No other, No grossly intact, No power is 5/5 both on sides Skin: No normal color, No warm/dry, No cyanosis, No cool, No diaphoresis, No damp, No ecchymosis, No jaundice, No mottled, No pallor, No rash, No tattoos/ piercings, No ulcerations, No rash on exposed areas, No ulcerations on exposed areas, No other A/P: Assessment/Dx: Tachycardia, abdominal pain, leucocytosis Plan: Tachycardia much better - from sinus tachycardia to sinus rhythm. Improved situation. EGD, Hida scan. per GS and primary team. Thank you for your consultation. Please call me if you have any questions. Maximus Regalado MD, FACP, FACC, FSCAI, FHRS, CCDS Interventional Cardiology Cardiac Electrophysiology Vascular Medicine and Endovascular Interventions Emmanuel REGALADO MD Jul 10, 2017 10:07
--- NOTE | 2017-07-10 11:40 | Discharge Summary-Hospitalist ---
Diagnosis/Chief Complaint Date of Admission Jul 08, 2017 at 14:58 Date of Discharge Admission Diagnosis Assessment: Severe epigastric abdominal pain with negative CT scan and GB USG but severely tachycardic and bandemia of 30% in outlying ER Recent GERD Discharge Diagnosis Assessment: Severe epigastric abdominal pain with negative CT scan and GB USG x 2 with severe tachycardia of 160 on admit and bandemia of 30% in outlying ER but HIDA scan reveals EF of only 4% so biliary dyskinesia is the dx Recent GERD placed on PPI empirically Discharge Summary Discharge Physical Examination Allergies: Coded Allergies: No Allergy Information Available (Unverified , 07/08/17) Vitals & I&Os Vital Signs Date Time Temp Pulse Resp B/P (MAP) Pulse Ox O2 Delivery O2 Flow Rate FiO2 07/10/17 11:04 Room Air 07/10/17 08:00 78 126/81 (96) 07/10/17 04:00 98.5 20 97 Hospital Course Notes from 07/10/17 Dr. uLa Review: HIDA scan will be done this afternoon manuscripts curator: Will talk to Dr. Lua when HIDA comes through Patient Interview: Was going to scan Plan: Copy of all records to pt Scribed by Mimi Swanson under direct supervision of Dr. Shaneka Haines. I updated the patient and family upon arrival back to room from HIDA scan and updated them on the HIDA scan results and Dr Lua will be in to see them and plan accordingly. Discharge Home Medications: Active Scripts Active Protonix (Pantoprazole Sodium) 40 Mg Tablet. 40 Mg PO DAILY Reported Lo Loestrin Fe 1-10 Tablet (Norethindrone-E.estradiol-Iron) 1 Each Tablet 1 Tab PO DAILY Zyrtec (Cetirizine HCl) 10 Mg Tablet 10 Mg PO DAILY Instructions to patient/family Please see electronic discharge instructions given to patient. Clinical Quality Measures DVT/VTE Risk/Contraindication: Risk Factor Score Per Nursin RFS Level Per Nursing on Admit: 1=Low/No VTE PPX SHANEKA HAINES DO Jul 10, 2017 11:39
[2017-07-10 12:00] VITALS: BP 120/74
[2017-07-10] MEDS ORDERED: PANT40TA2 PO (12:14)
[2017-07-10] MEDS: ONDANSETRON 4 MG/2 ML (SDV) Z0FRAN IVP PRN (12:21)
--- NOTE | 2017-07-10 12:53 | Diagnostic Imaging Report ---
EXAMINATION: HIDA with EF measurements Indication: Abdominal pain TECHNIQUE: After the intravenous administration of 4.9 mCi of Tc 99m Choletec, imaging over the abdomen was obtained. This was followed by administration of Ensure orally to stimulate intrinsic CCK secretion, followed by continued imaging with ejection fraction measured. FINDINGS: There is homogeneous uptake in the liver with prompt bile duct and gallbladder filling seen. Bowel activity is seen at 15 minutes. Based on further imaging and gallbladder area of interest activity measurements after the administration of Ensure, the gallbladder ejection fraction is estimated at 4%. IMPRESSION: 1. Normal hepatobiliary uptake and Gallbladder filling. 2. Markedly reduced gallbladder ejection fraction compatible with biliary dyskinesia. Dictated by: Dictated on workstation # [id number]
[2017-07-10] MEDS ORDERED: ONDA4TAB8 PO (13:50)
--- NOTE | 2017-07-10 22:12 | Progress Note ---
Subjective Date Seen by Provider: Jul 10, 2017 Time Seen by Provider: 08:12 Subjective/Events-last exam slight right upper quadrant pain. has some nausea and dry heaves last night. feeling slightly better now. Patient for HIDA scan today. denies fever sweats chills shortness of breath or chest pain. Objective Exam Vital Signs Date Time Temp Pulse Resp B/P (MAP) Pulse Ox O2 Delivery O2 Flow Rate FiO2 07/10/17 13:00 97 07/10/17 12:00 98.0 72 16 120/74 (89) 95 07/10/17 11:04 Room Air 07/10/17 09:00 Room Air 07/10/17 08:00 Room Air 07/10/17 08:00 78 126/81 (96) 07/10/17 07:00 64 07/10/17 04:00 98.5 76 20 116/78 (91) 97 Room Air 07/10/17 04:00 Room Air 07/10/17 01:00 73 07/10/17 00:00 Room Air 07/10/17 00:00 78 19 119/73 (88) 98 Room Air I & O 07/10/17 07:00 Intake Total 3550 ml Output Total 4150 ml Balance -600 ml Capillary Refill : General Appearance: No Apparent Distress, WD/WN HEENT: PERRL/EOMI, Normal ENT Inspection, Pharynx Normal Neck: Full Range of Motion, Normal Inspection, Non Tender Respiratory: Chest Non Tender, Lungs Clear, Normal Breath Sounds, No Accessory Muscle Use, No Respiratory Distress Cardiovascular: Regular Rate, Rhythm Gastrointestinal: soft, tenderness (ruq minimal) Extremity: Normal Capillary Refill, Normal Inspection, Normal Range of Motion, Non Tender, No Calf Tenderness, No Pedal Edema Neurologic/Psychiatric: Alert, Oriented x3, No Motor/Sensory Deficits, Normal Mood/Affect Skin: Normal Color, Warm/Dry Lymphatic: No Adenopathy Assessment/Plan Assessment/Plan Assessment/Plan epigastric/right upper quadrant abdominal pain. nausea and vomiting GERD hiatal hernia Hida scan planned today Patient seen after Hida scan Gallbladder EF 4% consistent with biliary dyskinesia Plan Lap cholecystectomy all other indicated procedures intraoperative cholangiogram tomorrow. Okay to DC home and do as outpatient. discussed risks and benefit with patient and parents who agree. Clinical Quality Measures DVT/VTE Risk/Contraindication: Risk Factor Score Per Nursin RFS Level Per Nursing on Admit: 1=Low/No VTE PPX JONY SAAVEDRA DO Jul 10, 2017 22:12
[2017-07-11] MEDS ORDERED: DOCU-143 PO (11:43)
[2017-07-11] MEDS ORDERED: HYDR-3812 PO (11:43)
[2017-07-11] MEDS ORDERED: HYDROcodone/APAP 5 MG/325 MG (LORTAB) TAB ONE (13:09)
== END 2017-07-10 14:40 | disposition home or self-care (01) ==
LOC: ICU 14:47 → SDC 14:47 → UNDOADMOB 14:47 → ICU 14:47 → UNDOADMOB 14:58 → EDSTATUS 15:34 → UNDODISOB 07-10 14:40 → SDC 07-10 14:40
PROVIDERS: ATTEND Internal Medicine
DX: K29.70 Gastritis, unspecified, without bleeding (principal); K44.9 Diaphragmatic hernia without obstruction or gangrene; R00.0 Tachycardia, unspecified; Z87.442 Personal history of urinary calculi; D72.829 Elevated white blood cell count, unspecified; K82.8 Other specified diseases of gallbladder
CPT/HCPCS: 36415; 76705; 78227; 80053; 82150; 83690; 85025; 88305; 93306; 99211; G0378

== ENCOUNTER 2017-07-11 07:30 | Day surgery (SDC) | payer BC ==
[~2017-07-11] VITALS: Ht 162.6 cm; Wt 75.9 kg
[~2017-07-11 07:30] MED LIST changes: -ACETAMINOPHEN 500 MG TAB (TYLENOL) PO PRN; -ALPRAZolam 0.25 MG (XANAX) TAB PO PRN; +CETI10TA20 PO; -IBUPROFEN TABLET 200 MG TAB PO PRN; +NORE1TAB95 PO; -NS IV 1000 ML 1,000 ML IV SCH; +ONDA4TAB8 PO; +PANT40TA2 PO
[2017-07-11 08:45] VITALS: BP 137/79
[2017-07-11] MEDS ORDERED: ceFAZolin INJECTION 1,000 MG in NS (IVPB) 50 ML IV ONE (08:45)
[2017-07-11] MEDS ORDERED: HYDROmorphone (DILAUDID) 2 MG/ML VIAL ONE (09:28)
[2017-07-11] MEDS ORDERED: morphine INJ 10 MG/ML 1ML (SYR OR VIAL) ONE (09:28)
[2017-07-11] MEDS ORDERED: PROMETHAZINE INJ 25 MG/ML (PHENERGAN) AMP ONE (09:28)
[2017-07-11] MEDS ORDERED: MEPERIDINE (DEMEROL) INJ 50 MG/ML ONE (09:28)
[2017-07-11] MEDS ORDERED: ONDANSETRON 4 MG/2 ML (SDV) Z0FRAN ONE ×3 (09:29→10:50)
[2017-07-11] MEDS ORDERED: LIDOCAINE 1% INJ 20 ML (XYLOCAINE) VIAL ONE (09:58)
[2017-07-11] MEDS ORDERED: BUPIVACAINE 0.5% 30 ML (SENSORCAINE) VIAL ONE (09:58)
--- NOTE | 2017-07-11 10:34 | Progress Note-Pre Operative ---
Pre-Operative Progress Note H&P Reviewed The H&P was reviewed, patient examined and no changes noted. Date Seen by Provider: Jul 11, 2017 Time Seen by Provider: 10:34 Date H&P Reviewed: Jul 11, 2017 Time H&P Reviewed: 10:34 Pre-Operative Diagnosis: biliary dyskinesia JONY SAAVEDRA DO Jul 11, 2017 10:34
[2017-07-11] MEDS: LACTATED RINGERS 1,000 ML IV PRN ×2 (10:40→11:47)
[2017-07-11] MEDS ORDERED: SCOPOLAMINE 1.5 MG (TRANSDERM-SCOP) PATCH ONE (10:45)
[2017-07-11] MEDS ORDERED: fentaNYL INJECTION 100 MCG/2 ML AMP ONE (10:48)
[2017-07-11] MEDS ORDERED: MIDAZOLAM 2 MG/2 ML (VERSED) VIAL ONE (10:48)
[2017-07-11] MEDS ORDERED: SEVOFLURANE (ULTANE) 15 ML INHAL SOLN ONE ×3 (10:48→11:41)
[2017-07-11] MEDS ORDERED: LACTATED RINGERS 1,000 ML IV ONE ×2 (10:48→11:41)
[2017-07-11] MEDS ORDERED: ROCURONIUM 50 MG/5 ML (ZEMURON) VIAL IV ONE (10:48)
[2017-07-11] MEDS ORDERED: proPOfol 200 MG/20 ML (DIPRIVAN) VIAL IV ONE (10:48)
[2017-07-11] MEDS ORDERED: LIDOCAINE PF 2% 5 ML (XYLOCAINE) VIAL ONE (10:48)
[2017-07-11] MEDS ORDERED: DEXAMETHASONE 10 MG/ML (DECADRON) 1 ML VIAL ONE (10:49)
[2017-07-11] MEDS ORDERED: FAMOTIDINE 20MG/2ML IV (PEPCID) ONE (10:49)
--- NOTE | 2017-07-11 11:41 | Progress Note-Post Operative ---
Post-Operative Progess Note Surgeon (s)/Imposer (s) Surgeon JONY SAAVEDRA DO Imposer: Dr. Freeman Pre-Operative Diagnosis biliary dyskinesia Post-Operative Diagnosis same Procedure & Operative Findings Date of Procedure 07/11/17 Procedure Performed/Findings lap taran attempted IOC Anesthesia Type general Estimated Blood Loss Estimated blood loss (mL): minimal Specimens/Packing Specimens Removed gallbladder JONY SAAVEDRA DO Jul 11, 2017 11:41
[2017-07-11] MEDS ORDERED: HYDR-3812 PO (11:43)
[2017-07-11] MEDS ORDERED: DOCU-143 PO (11:43)
[2017-07-11] MEDS ORDERED: HYDROcodone/APAP 5 MG/325 MG (LORTAB) TAB PO PRN (11:45)
--- NOTE | 2017-07-11 11:45 | Discharge Inst-Simple/Standard ---
Discharge Inst-Standard Discharge Medications New, Converted or Re-Newed RX: RX on Chart Patient Instructions/Follow Up Plan of Care/Instructions/FU: 2 weeks Stoney Activity as Tolerated: No Discharge Diet: Regular Diet Other Inst to Patient Follow up Appt: Make appointment for 2 weeks. Instructions: No lifting greater than 10 pounds. No strenuous activity. May shower in 24 hours, no tub bath or soaking. Use incentive spirometer at home as directed. No Smoking Skin/Wound Care: You have special glue over incisions it will fall off on its own. Symptoms to Report: Appetite Changes, Extremity Discoloration, Numbness/Tingling, Swelling Increased , Bleeding Excessive, Eyesight Changes, Pain Increased, Urine Color Change, Constipation(Persistent), Fever over 101 degree F, Pain/Pressure in chest, Urinating Difficulty, Cough Up/Vomit Blood, Heart Beat Irreg/Pounding, Pain/ Pressure in jaw, Vaginal Bleeding Increase, Cramps in feet or legs, Lightheadedness, Pain/Pressure in shoulder, Diarrhea(Persistent), Memory Changes Suddenly, Questions/Concerns, Weight gain consecutive days, Dizziness/ Fainting, Nausea/Vomiting, Shortness of Breath, Weight gain over 2 pounds. If eyes or skin turn yellow notify physician. If questions or concerns contact your physician Or seek help at emergency department. JONY SAAVEDRA DO Jul 11, 2017 11:45
[2017-07-11] MEDS: morphine INJ 10 MG/ML 1ML (SYR OR VIAL) IVP PRN ×2 (12:07→12:15)
[2017-07-11] MEDS: PROMETHAZINE INJ 25 MG/ML (PHENERGAN) AMP IVP PRN ×2 (12:09→12:40)
[2017-07-11] MEDS: HYDROmorphone (DILAUDID) 2 MG/ML VIAL IVP PRN ×2 (12:20→12:30)
[2017-07-11] MEDS ORDERED: MEPERIDINE (DEMEROL) INJ 50 MG/ML IVP PRN (12:30)
[2017-07-11] MEDS ORDERED: ONDANSETRON 4 MG/2 ML (SDV) Z0FRAN IVP PRN (12:30)
[2017-07-11 16:15] VITALS: BP 107/68
--- NOTE | 2017-07-11 18:01 | OPERATIVE REPORT ---
DATE OF SERVICE: 07/11/2017 PREOPERATIVE DIAGNOSIS: Biliary dyskinesia. POSTOPERATIVE DIAGNOSIS: Biliary dyskinesia. PROCEDURE: Laparoscopic cholecystectomy, attempted intraoperative cholangiogram. SURGEON: Charli Lua DO CAT OPERATOR: Dr. Freeman, assisted in retraction, dissection and closure. ANESTHESIA: General. ESTIMATED BLOOD LOSS: Minimal. COMPLICATIONS: None. INDICATIONS: The patient is a 22-year-old female who has had significant nausea and vomiting and some right upper quadrant abdominal pain. She had a workup consisting of a normal CT scan, normal gallbladder ultrasound and she had a HIDA scan performed which demonstrated the gallbladder to have an ejection fraction of 4%. The patient was explained risks and benefits of procedure and wished to proceed with procedure. Consent was signed and on the chart. DESCRIPTION OF PROCEDURE: The patient was taken to the operating suite, she was prepped and draped in sterile fashion. Surgical pause was performed. Local anesthetic was used to infiltrate around the umbilicus. Another 15 blade scalpel was used to make an incision and cautery was used to dissect down to the fascia, which was then scored, grasped and elevated, and the abdomen was entered. An 0 Vicryl suture was placed in a [id number] fashion for closure at the end of the case. A balloon trocar was inserted into the abdomen and pneumoperitoneum was achieved. Under direct visualization of the laparoscope, a 5 mm trocar was placed in the subxiphoid region and two 5 mm trocars were placed in the right upper quadrant. The gallbladder was grasped and elevated. There were some adhesions to the gallbladder and the gallbladder appeared to be distended with some slight edema around it. The cystic duct and cystic artery were then dissected around. A clip was placed on the proximal and distal portion of the cystic artery which was then transected. The cystic duct was very tiny diameter of the duct. This was partially transected. The catheter was not able to be inserted. The duct was then attempted to be dilated without any success. Therefore, the cholangiogram was not performed. Clips were placed on the proximal portion of the cystic duct and the duct was then transected. Hook cautery was used to dissect the gallbladder from the gallbladder fossa. There was a posterior branch of the cystic artery which a clip was placed on the proximal portion and hook cautery was used to transect it distally. Once the gallbladder was removed using hook cautery and hemostasis was achieved, the gallbladder was placed in an Endobag and removed through the 12 mm trocar site. Abdomen was irrigated and suctioned. Hemostasis was achieved. The trocars were removed. The abdomen was desufflated. The fascial defect where the 0 Vicryl was placed in a [id number] fashion was then closed. The skin was then closed using 4-0 Monocryl in a subcuticular fashion. The area was then washed and dried and Dermabond was placed over the incisions. The patient tolerated the procedure well without any complications. She was taken to the recovery room in stable condition. Job ID: [id number] DocumentID: [id number] Dictated Date: 07/11/2017 17:35:13 Event Management Consultant Date: 07/11/2017 18:00:35 Dictated By: DO CED DEL ROSARIO
--- NOTE | 2017-07-12 09:21 | Anesthesia-General Post-Op ---
General Patient Condition Mental Status/LOC: Same as Preop Cardiovascular: Satisfactory Nausea/Vomiting: Absent Respiratory: Satisfactory Pain: Controlled Complications: Absent Post Op Complications Complications None Follow Up Care/Instructions Patient Instructions None needed. Anesthesia/Patient Condition Patient Condition Patient is doing well, no complaints, stable vital signs, no apparent adverse anesthesia problems. No complications reported per nursing. D/C home per [facility] Criteria: Yes MERCEDES BECERRA CRNA Jul 12, 2017 09:21
== END 2017-07-11 16:33 | disposition home or self-care (01) ==
LOC: SDC 07:30
PROVIDERS: ATTEND Surgery
DX: K81.1 Chronic cholecystitis (principal)
CPT/HCPCS: 84703; 87081